=== PATIENT | female | born 1965 | race African-American/Black ===

== ENCOUNTER 2017-07-10 16:45 | Emergency (ER) | payer OTHER ==
[~2017-07-10] VITALS: Ht 157.5 cm; Wt 50.9 kg
[2017-07-10] MEDS ORDERED: ROBAXIN750 MG PO (18:30)
[2017-07-10] MEDS ORDERED: MOTRIN600 MG PO (18:30)
[2017-07-10 18:51] VITALS: BP 113/74
== END 2017-07-10 18:52 | disposition home or self-care (01) ==
LOC: EME 16:45
DX: S16.1XXA Strain of muscle, fascia and tendon at neck level, initial encounter (principal); S83.91XA Sprain of unspecified site of right knee, initial encounter; V49.40XA Driver injured in collision with unspecified motor vehicles in traffic accident, initial encounter; Y92.410 Unspecified street and highway as the place of occurrence of the external cause; F43.10 Post-traumatic stress disorder, unspecified
CPT/HCPCS: 73564; 99281; 99284